=== PATIENT | female | born 1970 | race Caucasian/White ===

== ENCOUNTER 2021-07-12 06:54 | Outpatient (CLI) | payer BC ==
[2021-07-12 16:01] LABS: SARS-CoV-2 PCR by NAA Not Detected (NotDetected)
== END 2021-07-12 06:55 | disposition home or self-care (01) ==
LOC: LABBT 06:54
PROVIDERS: ATTEND Specialist
DX: Z01.818 Encounter for other preprocedural examination (principal); J38.2 Nodules of vocal cords; R49.9 Unspecified voice and resonance disorder; J38.3 Other diseases of vocal cords; J06.9 Acute upper respiratory infection, unspecified; Z20.822 Contact with and (suspected) exposure to COVID-19
CPT/HCPCS: 85014; 93005; 93010; U0003; U0005

== ENCOUNTER 2021-07-15 09:17 | Day surgery (SDC) | payer BC ==
[2021-07-13 10:39] VITALS: BMI 25.7
[2021-07-15] MEDS ORDERED: Fentanyl 250 MCG/5 ML VIAL ONE (10:19)
[2021-07-15] MEDS ORDERED: EPINEPHrine 1 MG/ML AMP ONE (12:20)
[2021-07-15] MEDS ORDERED: PROPOFOL 40 ML ONE (12:28)
[2021-07-15] MEDS ORDERED: Midazolam HCl 2 mg/2 ml Vial ONE (12:28)
[2021-07-15] MEDS ORDERED: Lidocaine 1% PF 5 ML VIAL ONE (12:35)
[2021-07-15] MEDS ORDERED: ePHEDrine 50 MG/ML VIAL ONE (12:35)
[2021-07-15] MEDS ORDERED: Dexamethasone 20 MG/5 ML VIAL ONE (12:35)
[2021-07-15] MEDS ORDERED: PROPOFOL 200 MG/20 ML VIAL ONE (12:35)
[2021-07-15] MEDS ORDERED: Ondansetron PF 4 MG/2 ML Vial ONE (12:35)
== END 2021-07-15 14:45 | disposition home or self-care (01) ==
LOC: SDC 09:17
PROVIDERS: ATTEND Specialist
PROC: 0CBV8ZZ Excision of Left Vocal Cord, Via Natural or Artificial Opening Endoscopic (ICD-10-PCS; principal; 2021-07-15)
DX: J38.3 Other diseases of vocal cords (principal); Z79.899 Other long term (current) drug therapy; Z88.0 Allergy status to penicillin
CPT/HCPCS: 88304; J0171; J1100; J2250; J2405; J2704; J3010; J3490